=== PATIENT | female | born 1985 | race Caucasian/White ===

== ENCOUNTER → 2017-03-07 | Outpatient (CLI) | payer OTHER ==
[~2017-03-07] VITALS: Ht 156.2 cm; Wt 50.8 kg
[~2017-03-07] MED LIST: AMITIZA8 MICROGRA PO; BENTYL10 MG PO; BUSPAR10 MG PO; HYDROXYZINE HCL25 MG PO; MIRENA52 MG IY; Motrin PO; NAPROXEN500 MG PO; NOHOMEMEDS; PAROXETINE HCL20 MG PO; Percocet 5/325,Endoc PO; ZOFRAN4 MG PO
== END | disposition home or self-care (01) ==
LOC: AMB 07:20
PROC: 0DJD8ZZ Inspection of Lower Intestinal Tract, Via Natural or Artificial Opening Endoscopic (ICD-10-PCS; principal; 2017-03-07)
DX: K62.89 Other specified diseases of anus and rectum (principal); K59.00 Constipation, unspecified; R10.9 Unspecified abdominal pain